=== PATIENT | female | born 1990 | race African-American/Black ===

== ENCOUNTER 2021-01-30 03:16 | Emergency (ER) | payer BC ==
[~2021-01-30] VITALS: Ht 167.6 cm; Wt 123.7 kg
--- NOTE | 2021-01-30 03:34 | PHYS DOC ---
Past Medical History Past Medical History: Hypertension Procedural Sedation Proc Sed Indication: Electrical cardioversion for atrial fibrillation with RVR Consent: I have discussed with the patient and/or the patient bank representative the indication, alternatives, and the possible risks and /or complications of the planned procedure and the anesthesia methods. The patient and/or patient bank representative appear to understand and agree to proceed. We also discussed the risks of stroke and induced arrhythmia with cardioversion. Airway Assessment: normal. Fasting greater than 6 hours. Mallampati 1. Predictors of difficult airway/mask seal: Obesity. Prior History of Anesthesia Complications: none. ASA Classification: 1 Sedation/ Anesthesia Plan: Propofol Medications Used: see nursing notes. Monitoring and Safety: The patient was placed on a engine monitor and vital signs, pulse oximetry and level of consciousness were continuously evaluated throughout the procedure. The patient was closely monitored until recovery from the medications was complete and the patient had returned to baseline status. Respiratory therapy was on standby at all times during the procedure. (The following sections must be completed) Post-Sedation Vital Signs: [EDM.VS] Post-Sedation Exam: Alert, oriented. Moving all extremities. Answering questions appropriately. Symptoms improved. Complications: none. Vital Signs Vital Signs Date Time Temp Pulse Resp B/P (MAP) Pulse Ox O2 Delivery O2 Flow Rate FiO2 01/30/21 03:55 148 120/80 01/30/21 03:45 20 99 Room Air 01/30/21 03:18 97.9 97.9 General Adult EDM: Chief Complaint: CHEST PAIN HPI: HPI: Patient is a 30 year old female with history of HTN, and anemia who presents with palpitations and chest pain. Awoke her from sleep this morning just prior to arrival. Was feeling in her usual state of health last night prior to bed. Has a sharp chest pain. Radiates to the back. EMS found her to be in a rapid rhythm, initially thought to be SVT. She was given 12 mg of IV adenosine x2 without effect. Follow-up EKGs were more concerning for A. fib with RVR. Her vital signs remained stable. Review of Systems: Review of Systems: Constitutional: Denies fever or chills. [] Eyes: Denies change in visual acuity. [] HENT: Denies nasal congestion or sore throat. [] Respiratory: Denies cough. Reports some shortness of breath [] Cardiovascular: Reports chest pain and palpitations. Denies lower extremity edema.. [] GI: Denies abdominal pain, nausea, vomiting, bloody stools or diarrhea. [] : Denies dysuria. [] Musculoskeletal: Denies back pain or joint pain. [] Integument: Denies rash. [] Neurologic: Denies headache, focal weakness or sensory changes. [] Endocrine: Denies polyuria or polydipsia. [] Lymphatic: Denies swollen glands. [] Psychiatric: Denies depression or anxiety. [] Heart Score: C/O Chest Pain: Yes HEART Score for Chest Pain: HEART Score for Chest Pain Response (Comments) Value History Slighlty/Non-Suspicious 0 ECG Nonspecific Repolarizatio 1 Age < 45 0 Risk Factors 1 or 2 Risk Factors 1 Total 2 Risk Factors: Risk Factors: DM, Current or recent (<one month) smoker, HTN, HLP, family history of CAD, obesity. Risk Scores: Score 0 - 3: 2.5% MACE over next 6 weeks - Discharge Home Score 4 - 6: 20.3% MACE over next 6 weeks - Admit for Clinical Observation Score 7 - 10: 72.7% MACE over next 6 weeks - Early Invasive Strategies Allergies: Allergies: Allergies Coded Allergies Type Severity Reaction Last Updated Verified No Known Drug Allergies 01/30/21 No Physical Exam: PE: Constitutional: Well developed, well nourished, no acute distress, non-toxic appearance. [] HENT: Normocephalic, atraumatic, bilateral external ears normal, oropharynx moist, no oral exudates, nose normal. [] Eyes: PERRLA, EOMI, conjunctiva normal, no discharge. [] Neck: Normal range of motion, no tenderness, supple, no stridor. [] Cardiovascular:Heart rate regular rhythm, no murmur [] Lungs & Thorax: Bilateral breath sounds clear to auscultation [] Abdomen: Bowel sounds normal, soft, no tenderness, no masses, no pulsatile masses. [] Skin: Warm, dry, no erythema, no rash. [] Back: No tenderness, no CVA tenderness. [] Extremities: No tenderness, no cyanosis, no clubbing, ROM intact, no edema. [] Neurologic: Alert and oriented X 3, normal motor function, normal sensory function, no focal deficits noted. [] Psychologic: Affect normal, judgement normal, mood normal. [] EKG: EKG: A. fib with RVR. Rate 158. Normal axis. Slight lateral ST depressions. [] Post cardioversion EKG: Repeat EKG with sinus rhythm. Radiology/Procedures: Radiology/Procedures: Indication: A. fib with RVR Consent: The patient provided verbal consent for this procedure. Pre-Medication: Propofol 50 mg Procedure: The patient was placed in the supine position and the chest area was exposed. The cardioversion pads were applied in the standard manner and configuration. The defibrillator was set on the synchronized cardioversion mode and charged to 200 J joules. A charge was then delivered which resulted in normal sinus rhythm. The patient tolerated the procedure well. Complications: none. [] Course & Med Decision Making: Course & Med Decision Making Pertinent Labs and Imaging studies reviewed. (See chart for details) Patient 30-year-old female history of HTN and anemia who presents with abrupt onset palpitations, chest pain, shortness of breath waking her from sleep this morning just prior to arrival. She received adenosine 12 mg x 2 prior to arrival for concern of SVT. Here her EKG looks more concerning for A. fib with RVR. Will give 5 mg of IV metoprolol, given her hemodynamic stability at this time. C2V = 2 (gender, HTN), will discuss anticoagulation. We will check labs including CBC, CMP, TSH, magnesium in an attempt to exclude any inciting abnormalities. [id number] She did not respond to IV metoprolol 5 mg x 2. She was consented for propofol sedation and electrical cardioversion. Sedated with 50 mg IV propofol (<0.5 mg/kg) with good effect. 200 J syncronized cardioversion performed and she returned to NSR. Will write for 4 weeks of anticoagulation with apixaban and ask that she follow up with her trench pipe layer to discuss the afib and determine if she will continue anticoagulation. She was warned about signs of stroke and risk of serious bleeding on blood thinners. [id number] Gisselle Disclaimer: Gisselle Disclaimer: This electronic medical record was generated, in whole or in part, using a voice recognition dictation system. Departure Departure Impression: Primary Impression: Atrial fibrillation with RVR Disposition: HOME / SELF CARE / HOMELESS Condition: STABLE Patient Instructions: Atrial Fibrillation Additional Instructions: You have new onset atrial fibrillation. This can put you at risk for stroke. For the next 4 weeks I would like you to take a blood thinner called Eliquis. Please take as prescribed. This can put you at risk for bleeding. If you hit your head this is now medical emergency and you will need to be seen in emergency department. Please monitor for other signs of bleeding from your GI tract or vaginally. Please follow-up with your trench pipe layer. They may wish to take you off of this medication after the 4-week follow-up. If you have recurrent symptoms you can return to the emergency department for reevaluation at any time. Scripts Apixaban (ELIQUIS) 5 Mg Tablet 5 MG PO BID for 28 Days, #56 TAB Prov: MARKIE MEDRANO MD 01/30/21 MARKIE MEDRANO MD Jan 30, 2021 03:34
[2021-01-30 03:41] LABS: BASO % 1 % (0-3); EOS # 0.1 x10^3/uL (0.0-0.7); EOS % 2 % (0-3); HEMATOCRIT 34.5 % (36.0-47.0); HEMOGLOBIN 11.5 g/dL (12.0-15.5); LYMPH # 3.1 x10^3/uL (1.0-4.8); LYMPH % 48 % (24-48); MEAN CORPUSCULAR HEMOGLOBIN 26 pg (25-35); MEAN CORPUSCULAR HGB CONC 33 g/dL (31-37); MEAN CORPUSCULAR VOLUME 77 fL (79-100); MONO # 0.3 x10^3/uL (0.0-1.1); MONO % 5 % (0-9); NEUT # 2.9 x10^3/uL (1.8-7.7); NEUT % 44 % (31-73); PLATELET COUNT 281 x10^3/uL (140-400); RED BLOOD COUNT 4.51 x10^6/uL (3.50-5.40); RED CELL DISTRIBUTION WIDTH 17.1 % (11.5-14.5); WHITE BLOOD COUNT 6.5 x10^3/uL (4.0-11.0)
[2021-01-30 04:00] LABS: CALCIUM 8.5 mg/dL (8.5-10.1); CREATININE 1.1 mg/dL (0.6-1.0); GFR 70.1; POTASSIUM 3.2 mmol/L (3.5-5.1)
[2021-01-30] MEDS ORDERED: METOPROLOL IV PUSH 5 MG/5 ML VIAL. IVP ONE ×2 (04:00)
[2021-01-30] MEDS ORDERED: PROPOFOL 10 MG/ML (20ML) VIAL. IV ONE ×2 (04:03→05:00)
[2021-01-30 04:04] LABS: ALBUMIN 3.5 g/dL (3.4-5.0); ALBUMIN/GLOBULIN RATIO 0.9 (1.0-1.7); MAGNESIUM 1.8 mg/dL (1.8-2.4); TOTAL BILIRUBIN 0.3 mg/dL (0.2-1.0); TOTAL PROTEIN 7.4 g/dL (6.4-8.2)
[2021-01-30] MEDS ORDERED: APIX5TAB PO (04:40)
[2021-01-30 04:53] VITALS: BP 166/92
[2021-01-30 05:15] VITALS: BP 194/106
== END 2021-01-30 05:21 | disposition home or self-care (01) ==
LOC: ER 03:16
DX: I48.20 Chronic atrial fibrillation, unspecified (principal); R07.89 Other chest pain; R00.2 Palpitations; I10 Essential (primary) hypertension
CPT/HCPCS: 36415; 80053; 83735; 84443; 84484; 85025; 92960; 93005; 94760; 96374; 96375; 96376; 99152; 99285; J2704; J3490; 96361